=== PATIENT | female | born 1990 | race Caucasian/White ===

== ENCOUNTER 2016-08-11 17:29 | Emergency (ER) | payer MEDICAID ==
--- NOTE | 2016-08-11 19:00 | EDM.PDOC ---
<Conner Llanos Antonio - Last Filed: 08/11/16 23:04> ED HPI GENERAL MEDICAL PROBLEM - General Chief Complaint: Behavioral/Psych Stated Complaint: EVAL Time Seen by Provider: 08/11/16 18:46 Source of Information: Reports: Patient History Limitations: Reports: No Limitations - History of Present Illness INITIAL COMMENTS - FREE TEXT/NARRATIVE: With suicidal thoughts x last several months. Financial and marital stressors. Is seeing a counselor but admits that she lies to her on input forms. Has five children. Lives with her husbands grandparents. His grandma has alcohol issues. Pt feels like her anxiety and depression are getting worse. Started cutting herself for the last several weeks. Does smoke pot and has been drinking daily. "I can't handle life." Has had suicidal thoughts. Denies current plan. Has been on current meds for 6 months. Was off for 1-2 years when living in [place]. Denies immediate post blues but about 2 months after of her last child began feeling depressed mood. Admits to having OCD but has been leaving the cleaning to wait. Has been throwing up daily due to stress. Is willing to show me her cutting to right upper thigh but is ashamed of it. Took a Xanax from a friend the other day. Is willing to speak to a crisis counselor. 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: Neurological History: Reports: Migraines Psychiatric History: Reports: Anxiety, Depression, Other (See Below) Other Psychiatric History: cutting Social & Family History - Recreational Drug Use Recreational Drug Use: Yes Recreational Drug Type: Reports: Marijuana/Hashish Recreational Drug Use Frequency: Weekly ED ROS GENERAL - Review of Systems Review Of Systems: See Below Constitutional: Reports: Fatigue HEENT: Reports: No Symptoms Respiratory: Reports: No Symptoms Cardiovascular: Reports: No Symptoms Skin: Reports: Other (cutting to right thigh) Psychiatric: Reports: Anxiety, Depression, Mood Lability, Suicidal Ideation ED EXAM, BEHAVIORAL HEALTH - Physical Exam Exam: See Below Exam Limited By: No Limitations General Appearance: Anxious, Mild Distress, Other (well kept appearance, good historian, verbally appropriate) Psychiatric: Alert, Oriented, Depressed Mood, Suicidal Thoughts, Other (cutting behaviors) Skin Exam: Other (scabbed cuts to right upper thigh covering entire area. No sign of infection.) COURSE, BEHAVIORAL HEALTH COMP - Course Vital Signs: Last Vital Signs Temp 98.3 F 08/11/16 23:23 Pulse 99 08/11/16 23:23 Resp 16 08/11/16 23:23 BP 159/104 H 08/11/16 23:23 Pulse Ox 98 08/11/16 23:23 Orders, Labs, Meds: Laboratory Tests 08/11/16 08/11/16 08/11/16 Range/Units 19:16 19:16 19:17 WBC 7.9 (4.5-11.0) K/uL RBC 4.64 (3.30-5.50) M/uL Hgb 13.6 (12.0-15.0) g/dL Hct 40.6 (36.0-48.0) % MCV 88 (80-98) fL MCH 29 (27-31) pg MCHC 34 (32-36) % Plt Count 321 (150-400) K/uL Neut % (Auto) 67 H (36-66) % Lymph % (Auto) 23 L (24-44) % [place] % (Auto) 7 H (2-6) % Eos % (Auto) 2 (2-4) % Baso % (Auto) 1 (0-1) % Sodium (140-148) mmol/L Potassium (3.6-5.2) mmol/L Chloride (100-108) mmol/L Carbon Dioxide (21-32) mmol/L Anion Gap (5.0-14.0) mmol/L BUN (7-18) mg/dL Creatinine (0.6-1.0) mg/dL Est Cr Clr Drug Dosing mL/min Estimated GFR (MDRD) (>60) Glucose (74-106) mg/dL Calcium (8.5-10.1) mg/dL Total Bilirubin (0.2-1.0) mg/dL AST (15-37) U/L ALT (12-78) U/L Alkaline Phosphatase (46-116) U/L Total Protein (6.4-8.2) g/dL Albumin (3.4-5.0) g/dL Globulin (2.3-3.5) g/dL Albumin/Globulin Ratio (1.2-2.2) TSH, Ultra Sensitive (0.358-3.740) uIU/mL Urine Color Urine Appearance Urine pH (4.5-8.0) Ur Specific [place] (1.008-1.030) Urine Protein (NEGATIVE) mg/dL Urine Glucose (UA) (NEGATIVE) mg/dL Urine Ketones (NEGATIVE) mg/dL Urine Occult Blood (NEGATIVE) Urine Nitrite (NEGATIVE) Urine Bilirubin (NEGATIVE) Urine Urobilinogen (NORMAL) mg/dL Ur Leukocyte Esterase (NEGATIVE) Urine HCG, Qual Urine Opiates Screen (NEGATIVE) Ur Oxycodone Screen (NEGATIVE) Urine Methadone Screen (NEGATIVE) Ur Propoxyphene Screen (NEGATIVE) Acetaminophen 0.0 L (10.0-30.0) ug/mL Ur Barbiturates Screen (NEGATIVE) Ur Tricyclics Screen (NEGATIVE) Ur Phencyclidine Scrn (NEGATIVE) Ur Amphetamine Screen (NEGATIVE) U Methamphetamines Scrn (NEGATIVE) Urine MDMA Screen (NEGATIVE) U Benzodiazepines Scrn (NEGATIVE) U Cocaine Metab Screen (NEGATIVE) U Marijuana (THC) Screen (NEGATIVE) Ethyl Alcohol < 3 mg/dL 08/11/16 08/11/16 08/11/16 Range/Units 19:17 19:30 20:00 WBC (4.5-11.0) K/uL RBC (3.30-5.50) M/uL Hgb (12.0-15.0) g/dL Hct (36.0-48.0) % MCV (80-98) fL MCH (27-31) pg MCHC (32-36) % Plt Count (150-400) K/uL Neut % (Auto) (36-66) % Lymph % (Auto) (24-44) % [place] % (Auto) (2-6) % Eos % (Auto) (2-4) % Baso % (Auto) (0-1) % Sodium 142 (140-148) mmol/L Potassium 4.0 (3.6-5.2) mmol/L Chloride 105 (100-108) mmol/L Carbon Dioxide 24 (21-32) mmol/L Anion Gap 12.9 (5.0-14.0) mmol/L BUN 14 (7-18) mg/dL Creatinine 0.7 (0.6-1.0) mg/dL Est Cr Clr Drug Dosing 105.17 mL/min Estimated GFR (MDRD) > 60 (>60) Glucose 98 (74-106) mg/dL Calcium 8.9 (8.5-10.1) mg/dL Total Bilirubin 0.3 (0.2-1.0) mg/dL AST 33 (15-37) U/L ALT 57 (12-78) U/L Alkaline Phosphatase 90 (46-116) U/L Total Protein 8.1 (6.4-8.2) g/dL Albumin 4.3 (3.4-5.0) g/dL Globulin 3.8 H (2.3-3.5) g/dL Albumin/Globulin Ratio 1.1 L (1.2-2.2) TSH, Ultra Sensitive 1.907 (0.358-3.740) uIU/mL Urine Color Urine Appearance Urine pH (4.5-8.0) Ur Specific [place] (1.008-1.030) Urine Protein (NEGATIVE) mg/dL Urine Glucose (UA) (NEGATIVE) mg/dL Urine Ketones (NEGATIVE) mg/dL Urine Occult Blood (NEGATIVE) Urine Nitrite (NEGATIVE) Urine Bilirubin (NEGATIVE) Urine Urobilinogen (NORMAL) mg/dL Ur Leukocyte Esterase (NEGATIVE) Urine HCG, Qual Negative Urine Opiates Screen Negative (NEGATIVE) Ur Oxycodone Screen Negative (NEGATIVE) Urine Methadone Screen Negative (NEGATIVE) Ur Propoxyphene Screen Negative (NEGATIVE) Acetaminophen (10.0-30.0) ug/mL Ur Barbiturates Screen Negative (NEGATIVE) Ur Tricyclics Screen Negative (NEGATIVE) Ur Phencyclidine Scrn Negative (NEGATIVE) Ur Amphetamine Screen Negative (NEGATIVE) U Methamphetamines Scrn Negative (NEGATIVE) Urine MDMA Screen Negative (NEGATIVE) U Benzodiazepines Scrn Positive H (NEGATIVE) U Cocaine Metab Screen Negative (NEGATIVE) U Marijuana (THC) Screen Positive H (NEGATIVE) Ethyl Alcohol mg/dL 08/11/16 Range/Units 20:00 WBC (4.5-11.0) K/uL RBC (3.30-5.50) M/uL Hgb (12.0-15.0) g/dL Hct (36.0-48.0) % MCV (80-98) fL MCH (27-31) pg MCHC (32-36) % Plt Count (150-400) K/uL Neut % (Auto) (36-66) % Lymph % (Auto) (24-44) % [place] % (Auto) (2-6) % Eos % (Auto) (2-4) % Baso % (Auto) (0-1) % Sodium (140-148) mmol/L Potassium (3.6-5.2) mmol/L Chloride (100-108) mmol/L Carbon Dioxide (21-32) mmol/L Anion Gap (5.0-14.0) mmol/L BUN (7-18) mg/dL Creatinine (0.6-1.0) mg/dL Est Cr Clr Drug Dosing mL/min Estimated GFR (MDRD) (>60) Glucose (74-106) mg/dL Calcium (8.5-10.1) mg/dL Total Bilirubin (0.2-1.0) mg/dL AST (15-37) U/L ALT (12-78) U/L Alkaline Phosphatase (46-116) U/L Total Protein (6.4-8.2) g/dL Albumin (3.4-5.0) g/dL Globulin (2.3-3.5) g/dL Albumin/Globulin Ratio (1.2-2.2) TSH, Ultra Sensitive (0.358-3.740) uIU/mL Urine Color Yellow Urine Appearance Clear Urine pH 5.0 (4.5-8.0) Ur Specific [place] 1.025 (1.008-1.030) Urine Protein Negative (NEGATIVE) mg/dL Urine Glucose (UA) Normal (NEGATIVE) mg/dL Urine Ketones Negative (NEGATIVE) mg/dL Urine Occult Blood Negative (NEGATIVE) Urine Nitrite Negative (NEGATIVE) Urine Bilirubin Negative (NEGATIVE) Urine Urobilinogen Normal (NORMAL) mg/dL Ur Leukocyte Esterase Negative (NEGATIVE) Urine HCG, Qual Urine Opiates Screen (NEGATIVE) Ur Oxycodone Screen (NEGATIVE) Urine Methadone Screen (NEGATIVE) Ur Propoxyphene Screen (NEGATIVE) Acetaminophen (10.0-30.0) ug/mL Ur Barbiturates Screen (NEGATIVE) Ur Tricyclics Screen (NEGATIVE) Ur Phencyclidine Scrn (NEGATIVE) Ur Amphetamine Screen (NEGATIVE) U Methamphetamines Scrn (NEGATIVE) Urine MDMA Screen (NEGATIVE) U Benzodiazepines Scrn (NEGATIVE) U Cocaine Metab Screen (NEGATIVE) U Marijuana (THC) Screen (NEGATIVE) Ethyl Alcohol mg/dL Departure - Departure Disposition: DC/Tfer to Psych Hosp/Unit 65 Clinical Impression: Suicidal ideation, Self-harm Depression Qualifiers: Depression Type: major depressive disorder Major depression recurrence: recurrent Active/Remission status: currently active Major depression episode severity: severe Psychotic features: without psychotic features Qualified Code(s ): F33.2 - Major depressive disorder, recurrent severe without psychotic features - Discharge Information Referrals: Carolyn Oliveros NP [Primary Care Provider] - Forms: ED Department Discharge Additional Instructions: Pt open to speaking to data analytics specialist. Specialist does arrive to interview patient and spouse. Recommends placement at this time for psychiatric care. Pt agreeable to plan. Care turned over to Dr. Ibarra at 2300 as we await placement. - Problem List & Annotations (1) Suicidal ideation SNOMED Code(s): 9201970, 272710678 Code(s): R45.851 - SUICIDAL IDEATIONS Status: Acute Priority: Medium Current Visit: Yes (2) Depression SNOMED Code(s): 94299053 Code(s): F32.9 - MAJOR DEPRESSIVE DISORDER, SINGLE EPISODE, UNSPECIFIED Status: Acute Priority: Medium Current Visit: Yes Qualifiers: Depression Type: major depressive disorder Major depression recurrence: recurrent Active/Remission status: currently active Major depression episode severity: severe Psychotic features: without psychotic features Qualified Code(s): F33.2 - Major depressive disorder, recurrent severe without psychotic features (3) Self-harm SNOMED Code(s): 287485195 Code(s): AXO5806 - Status: Acute Priority: Medium Current Visit: Yes <SimeonrBib - Last Filed: 08/11/16 23:29> Departure - Departure Time of Disposition: 23:29 - Assessment/Plan Plan: patient was accepted to [facility] in [facility] will be transported via private car with her
[2016-08-11 23:26] VITALS: BP 159/104
== END 2016-08-11 23:45 ==
LOC: JP.ED 17:29
DX: F32.2 Major depressive disorder, single episode, severe without psychotic features (principal); S71.111A Laceration without foreign body, right thigh, initial encounter; R45.851 Suicidal ideations; Z79.899 Other long term (current) drug therapy; Z87.440 Personal history of urinary (tract) infections; X78.9XXA Intentional self-harm by unspecified sharp object, initial encounter
CPT/HCPCS: 36415; 80053; 80305; 81003; 81025; 84443; 85025; 99285; G0480

== ENCOUNTER 2017-07-13 14:30 | Emergency (ER) | payer MEDICAID ==
[2017-07-13] MEDS ORDERED: Sodium Chloride 0.9% 10 ML Syringe FLUSH PRN (17:09)
[2017-07-13] MEDS ORDERED: HYDROmorphone 0.5 MG/0.5 ML Syringe IVPUSH ONE ×2 (17:09→20:38)
[2017-07-13] MEDS ORDERED: Ondansetron 4 MG/2 ML SDV IVPUSH ONE (17:09)
[2017-07-13] MEDS ORDERED: Sodium Chloride 0.9% 100 ML IV SCH (18:15)
[2017-07-13] MEDS ORDERED: Iopamidol 612 MG/ML 100 ML Bottle IV SCH (18:15)
[2017-07-13] MEDS ORDERED: Sodium Chloride 0.9% 1,000 ML IV ONE ×2 (18:54→20:38)
[2017-07-13 19:55] VITALS: BP 120/67
[2017-07-13] MEDS ORDERED: Sodium Chloride 0.9% 1,000 ML IV SCH (20:15)
--- NOTE | 2017-07-13 20:52 | EDM.PDOC ---
ED HPI GENERAL MEDICAL PROBLEM - General Chief Complaint: General Stated Complaint: SWOLLEN LYMPH NODES Time Seen by Provider: 07/13/17 15:55 Source of Information: Reports: Patient History Limitations: Reports: No Limitations - History of Present Illness INITIAL COMMENTS - FREE TEXT/NARRATIVE: Salma presents today with complaints of worsening pain to left neck, difficulty swallowing, eating with pain radiating to left jaw and ear. She also complains of fever, chills, nausea off and on. She denies vomiting, change in bowel or bladder habits. Salma was seen by Dr. Brandt Broussard on 07/08/17 for left sided throat pain with radiation to left ear for 2 weeks. Fever of 101.3. She was prescribed cephalexin 1 gram PO BID for 10 days. Patient states she finished all prescribed antibiotics. 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 Denies: Weakness HEENT: Reports: Ear Pain, Throat Pain, Throat Swelling, Other (Left sided throat pain with radiation to left jaw and left ear. ). Denies: Dental Pain, Ear Discharge, Sinus Problem Respiratory: Denies: Shortness of Breath, Wheezing, Cough, Sputum Cardiovascular: Reports: No Symptoms Endocrine: Reports: No Symptoms GI/Abdominal: Reports: Difficulty Swallowing, Nausea. Denies: Abdominal Pain, Anorexia, Diarrhea, Vomiting : Reports: No Symptoms Musculoskeletal: Reports: No Symptoms Skin: Reports: Other (Edema to left neck ). Denies: Rash, Erythema, Wound Neurological: Denies: Confusion, Dizziness, Headache, Numbness, Tingling, Weakness Psychiatric: Reports: No Symptoms Hematologic/Lymphatic: Reports: No Symptoms Immunologic: Reports: No Symptoms ED EXAM, GENERAL - Physical Exam Exam: See Below Free Text/Narrative:: Salma is an alert and oriented 26 year old female presenting with complaints of left sided neck pain, and edema. Recent treatment with cephalexin for positive strep screen on 07/08/17. She denies trauma, recent injury to her neck, jaw or ear. General Appearance: Alert, WD/WN, Moderate Distress Eye Exam: Bilateral Eye: EOMI, Normal Inspection, PERRL Ears: Normal External Exam, Normal Canal, Hearing Grossly Normal, Normal TMs Ear Exam: Bilateral Ear: Auricle Normal, Canal Normal, TM normal Nose: Normal Inspection, Normal Mucosa, No Blood Throat/Mouth: Normal Inspection, Normal Lips, Normal Teeth, Normal Gums, Normal Oropharynx, No Airway Compromise, Other (hoarse voice, pain with palpation to left inner cheek and lower gum. No deviation of uvula noted. ) Head: Atraumatic, Normocephalic. No: Facial Swelling, Facial Tenderness, Sinus Tenderness Neck: Limited Range of Motion, Lymphadenopathy (L), Other (Pain with palpation to left kneck at midline to posterior neck with edema. No erythema noted. ) Respiratory/Chest: No Respiratory Distress, Lungs Clear, Normal Breath Sounds, No Accessory Muscle Use, Chest Non-Tender Cardiovascular: Normal Peripheral Pulses, Regular Rate, Rhythm, No Edema, No Murmur, No Rub Peripheral Pulses: 2+: Radial (L), Radial (R) GI/Abdominal: Normal Bowel Sounds, Soft, Non-Tender, No Organomegaly, No Distention, No Abnormal Bruit, No Mass Back Exam: Normal Inspection, Full Range of Motion. No: CVA Tenderness (R), CVA Tenderness (L) Extremities: Normal Inspection, Normal Range of Motion, Non-Tender, No Pedal Edema, Normal Capillary Refill Neurological: Alert, Oriented, CN II-XII Intact, Normal Cognition, Normal Gait, No Motor/Sensory Deficits Psychiatric: Normal Affect, Normal Mood Skin Exam: Warm, Dry, Intact, Normal Color, No Rash. No: Cyanosis, Ecchymosis, Erythema, Increased Warmth, Rash Lymphatic: Other (Asymetrical cervical adenopathy, trismus noted) Course - Vital Signs Last Recorded V/S: Last Vital Signs Temp 36.7 C 07/13/17 19:55 Pulse 90 07/13/17 19:55 Resp 17 07/13/17 19:55 BP 120/67 07/13/17 19:55 Pulse Ox 100 07/13/17 19:55 - Orders/Labs/Meds Orders: Active Orders 24 hr Category Date Time Status Soft Tissue Neck w Cont [CT] Stat Exams 07/13/17 17:09 Taken Iopamidol [Isovue-300 (61%)] Med 07/13/17 18:15 Active 100 ml IV . DIRECTED Sodium Chloride 0.9% [Normal Saline] 1,000 ml Med 07/13/17 20:38 Active IV .BOLUS Sodium Chloride 0.9% [Normal Saline] 100 ml Med 07/13/17 18:15 Active IV ASDIRECTED Sodium Chloride 0.9% [Saline Flush] Med 07/13/17 17:09 Active 10 ml FLUSH ASDIRECTED PRN Saline Lock Insert [OM.PC] Routine Oth 07/13/17 17:09 Ordered Medication Orders Sodium Chloride (Normal Saline) 100 mls @ 3 mls/sec IV ASDIRECTED CARLY Last Admin: 07/13/17 18:34 Dose: 3 mls/sec Sodium Chloride (Normal Saline) 1,000 mls @ 1,000 mls/hr IV .BOLUS ONE Stop: 07/13/17 21:37 Last Admin: 07/13/17 21:16 Dose: 1,000 mls/hr Iopamidol (Isovue-300 (61%)) 100 ml IV . DIRECTED CARLY Last Admin: 07/13/17 18:34 Dose: 100 ml Sodium Chloride (Saline Flush) 10 ml FLUSH ASDIRECTED PRN PRN Reason: Keep Vein Open Last Admin: 07/13/17 18:49 Dose: 10 ml Labs: Laboratory Tests 07/13/17 07/13/17 Range/Units 17:35 17:35 WBC 14.2 H (4.5-11.0) K/uL RBC 4.67 (3.30-5.50) M/uL Hgb 14.0 (12.0-15.0) g/dL Hct 40.6 (36.0-48.0) % MCV 87 (80-98) fL MCH 30 (27-31) pg MCHC 35 (32-36) % Plt Count 410 H (150-400) K/uL Neut % (Auto) 82 H (36-66) % Lymph % (Auto) 12 L (24-44) % [place] % (Auto) 5 (2-6) % Eos % (Auto) 1 L (2-4) % Baso % (Auto) 0 (0-1) % Sodium 139 L (140-148) mmol/L Potassium 3.3 L (3.6-5.2) mmol/L Chloride 102 (100-108) mmol/L Carbon Dioxide 26 (21-32) mmol/L Anion Gap 14.3 H (5.0-14.0) mmol/L BUN 10 (7-18) mg/dL Creatinine 0.7 (0.6-1.0) mg/dL Est Cr Clr Drug Dosing 105.17 mL/min Estimated GFR (MDRD) > 60 (>60) Glucose 74 (74-106) mg/dL Calcium 9.1 (8.5-10.1) mg/dL Total Bilirubin 0.4 (0.2-1.0) mg/dL AST 24 (15-37) U/L ALT 51 (12-78) U/L Alkaline Phosphatase 112 (46-116) U/L Total Protein 9.4 H (6.4-8.2) g/dL Albumin 4.4 (3.4-5.0) g/dL Globulin 5.0 H (2.3-3.5) g/dL Albumin/Globulin Ratio 0.9 L (1.2-2.2) Patient lab work reviewed, WBC 14.2, neut 82, K 3.3. Dr. Watson notified, I will contact ENT. [facility] ENT supervisor international reservations, Dr. Gaspar contacted. Patient will be discharged, provided clindamycin 450mg PO every 8 hours for 10 days with ENT follow up. Patient in agreement. Meds: Medications Generic Name Dose Route Start Last Admin Trade Name Freq PRN Reason Stop Dose Admin Sodium Chloride 100 mls @ 3 mls/sec 07/13/17 18:15 07/13/17 18:34 Normal Saline IV 3 mls/sec ASDIRECTED CARLY Administration Sodium Chloride 1,000 mls @ 1,000 mls/hr 07/13/17 20:38 07/13/17 21:16 Normal Saline IV 07/13/17 21:37 1,000 mls/hr .BOLUS ONE Administration Iopamidol 100 ml 07/13/17 18:15 07/13/17 18:34 Isovue-300 (61%) IV 100 ml . DIRECTED CARLY Administration Sodium Chloride 10 ml 07/13/17 17:09 07/13/17 18:49 Saline Flush FLUSH 10 ml ASDIRECTED PRN Administration Keep Vein Open Discontinued Medications Generic Name Dose Route Start Last Admin Trade Name Freq PRN Reason Stop Dose Admin Hydrocodone Bitart/Acetaminophen 1 tab 07/13/17 21:09 07/13/17 21:15 Perry 325-5 Mg PO 07/13/17 21:10 1 tab ONETIME ONE Administration Hydromorphone HCl 0.5 mg 07/13/17 17:09 07/13/17 18:47 Dilaudid IVPUSH 07/13/17 17:10 0.5 mg ONETIME ONE Administration Hydromorphone HCl 0.5 mg 07/13/17 20:38 07/13/17 21:18 Dilaudid IVPUSH 07/13/17 20:39 Not Given ONETIME ONE Sodium Chloride 1,000 mls @ 1,000 mls/hr 07/13/17 18:54 07/13/17 19:03 Normal Saline IV 07/13/17 19:53 1,000 mls/hr .BOLUS ONE Administration Sodium Chloride 1,000 mls @ 500 mls/hr 07/13/17 20:15 Normal Saline IV ASDIRECTED CARLY Ondansetron HCl 4 mg 07/13/17 17:09 07/13/17 18:46 Zofran IVPUSH 07/13/17 17:10 4 mg ONETIME ONE Administration - Radiology Interpretation CT Results Date: 07/13/17 (CT neck soft tissue with IV contrast: Severe enlargement of the left palatine tinsils present within irregular central region of decreased enhancement measuring 18 x 8 mm, consitent with tonsillar abscess. Severe bilateral jugular adenopathy noted with lymph nodes measuring up to 2.6cm with the left greater than the right. ) - Re-Assessments/Exams Free Text/Narrative Re-Assessment/Exam: 07/13/17 20:[address] report, ENT recommendations. She is in agreement with plan. Departure - Departure Time of Disposition: 21:12 Disposition: Home, Self-Care 01 Condition: Fair Clinical Impression: Tonsillar abscess, Lymph nodes enlarged - Discharge Information Referrals: Saadia Bedoya PA [Primary Care Provider] - Forms: ED Department Discharge, ED Return to Work/School Form Additional Instructions: You have been treated and evaluated for left tonsillar abscess. Patient will be discharged, provided clindamycin 450mg PO every 8 hours for 10 days with ENT follow up per [facility] ENT supervisor international reservations, Dr. Gaspar. Patient in agreement. Follow up with ENT in two weeks. Follow up with primary provider for recheck in one week. Take acetaminophen 1000mg and ibuprofen 600 to 800mg by mouth at the same time three times a day for pain. Do not take for more then 5 days, Push oral fluids to stay hydrated. Eat soft foods such as bananas, apple sauce, puddings and soups. Return to the emergency room for worsening, issues or concerns. - My Orders Last 24 Hours: My Active Orders 07/13/17 17:09 Soft Tissue Neck w Cont [CT] Stat Sodium Chloride 0.9% [Saline Flush] 10 ml FLUSH ASDIRECTED PRN Saline Lock Insert [OM.PC] Routine 07/13/17 18:15 Iopamidol [Isovue-300 (61%)] 100 ml IV . DIRECTED Sodium Chloride 0.9% [Normal Saline] 100 ml IV ASDIRECTED 07/13/17 20:38 Sodium Chloride 0.9% [Normal Saline] 1,000 ml IV .BOLUS - Assessment/Plan Last 24 Hours: My Active Orders 07/13/17 17:09 Soft Tissue Neck w Cont [CT] Stat Sodium Chloride 0.9% [Saline Flush] 10 ml FLUSH ASDIRECTED PRN Saline Lock Insert [OM.PC] Routine 07/13/17 18:15 Iopamidol [Isovue-300 (61%)] 100 ml IV . DIRECTED Sodium Chloride 0.9% [Normal Saline] 100 ml IV ASDIRECTED 07/13/17 20:38 Sodium Chloride 0.9% [Normal Saline] 1,000 ml IV .BOLUS Assessment:: Left tonsillar abscess Plan: Patient treated and evaluated for left tonsillar abscess. Patient will be discharged, provided clindamycin 450mg PO every 8 hours for 10 days with ENT follow up per [facility] ENT supervisor international reservations, Dr. Gaspar. Patient in agreement. Follow up with ENT in two weeks. Follow up with primary provider for recheck in one week. Take acetaminophen 1000mg and ibuprofen 600 to 800mg by mouth at the same time three times a day for pain. Do not take for more then 5 days, Push oral fluids to stay hydrated. Eat soft foods such as bananas, apple sauce, puddings and soups. Return to the emergency room for worsening, issues or concerns.
[2017-07-13] MEDS ORDERED: Acetaminophen/HYDROcodone 325-5 MG Tab PO ONE (21:09)
== END 2017-07-13 21:30 | disposition home or self-care (01) ==
LOC: JP.ED 14:30
DX: J36 Peritonsillar abscess (principal); F17.210 Nicotine dependence, cigarettes, uncomplicated; F41.9 Anxiety disorder, unspecified; F32.9 Major depressive disorder, single episode, unspecified; Z79.899 Other long term (current) drug therapy
CPT/HCPCS: 36415; 70491; 80053; 85025; 96361; 96374; 96375; 99284; A9270; J1170; J2405; J7030; J7040; J7050; Q9967

== ENCOUNTER 2017-08-12 09:37 | Day surgery (SDC) | payer MEDICAID ==
[~2017-08-12 09:37] MED LIST: Dexamethasone 4 MG/ML SDV ONE; Ondansetron 4 MG/2 ML SDV ONE; Oxymetazoline 0.05% Nasal Spray 15 ML Bottle ONE; Propofol 200 MG/20 ML SDV ONE; Rocuronium 50 MG/5 ML Vial ONE; Succinylcholine 200 MG/10 ML MDV ONE; fentaNYL 100 MCG/2 ML SDV ONE
[2017-08-12] MEDS ORDERED: Lactated Ringers 1,000 ML IV SCH (10:37)
[2017-08-12] MEDS ORDERED: fentaNYL 250 MCG/5 ML SDV ONE (10:50)
[2017-08-12] MEDS ORDERED: Acetaminophen/HYDROcodone 108-2.5 MG/5 ML Soln 15 ML UD Cup PO PRN (13:58)
[2017-08-12 14:42] VITALS: BP 126/76
== END 2017-08-12 14:30 | disposition home or self-care (01) ==
LOC: JP.SDS 09:37
PROVIDERS: ATTEND Otolaryngology
DX: J03.91 Acute recurrent tonsillitis, unspecified (principal); F17.210 Nicotine dependence, cigarettes, uncomplicated; E66.9 Obesity, unspecified; Z68.37 Body mass index [BMI] 37.0-37.9, adult; K21.9 Gastro-esophageal reflux disease without esophagitis; F33.42 Major depressive disorder, recurrent, in full remission; F41.9 Anxiety disorder, unspecified; Z79.899 Other long term (current) drug therapy
CPT/HCPCS: 42821; 88304; A9270; J0330; J1100; J2405; J2704; J3010; J7120

== ENCOUNTER 2020-02-05 06:33 | Inpatient (IN) | payer MEDICAID ==
[2020-02-05] MEDS ORDERED: Celecoxib 200 MG Cap PO ONE (06:45)
[2020-02-05] MEDS ORDERED: Scopolamine 1.5 MG Transdermal Patch TOP SCH (06:45)
[2020-02-05] MEDS ORDERED: Acetaminophen 500 MG Tab PO ONE (06:45)
[2020-02-05] MEDS ORDERED: fentaNYL 250 MCG/5 ML SDV ONE ×3 (07:01→09:46)
[2020-02-05] MEDS ORDERED: Dexamethasone 4 MG/ML SDV ONE (07:02)
[2020-02-05] MEDS ORDERED: Rocuronium 50 MG/5 ML Vial ONE (07:02)
[2020-02-05] MEDS ORDERED: Succinylcholine 200 MG/10 ML MDV ONE (07:02)
[2020-02-05] MEDS ORDERED: Ondansetron 4 MG/2 ML SDV ONE (07:02)
[2020-02-05] MEDS ORDERED: Propofol 200 MG/20 ML SDV ONE (07:02)
[2020-02-05] MEDS ORDERED: Glycopyrrolate 0.2 MG/ML 5 ML MDV ONE (07:02)
[2020-02-05] MEDS ORDERED: Neostigmine Methylsulfate 1 MG/ML 5 ML Syringe ONE (07:02)
[2020-02-05] MEDS ORDERED: Lactated Ringers 1,000 ML ONE (07:05)
[2020-02-05] MEDS ORDERED: Dextrose 5%-Lactated Ringers 1,000 ML IV SCH (08:00)
[2020-02-05] MEDS ORDERED: cefOXitin 2 GM Vial ONE (08:07)
[2020-02-05] MEDS ORDERED: Ketamine 50 MG in Sodium Chloride 0.9% 49.5 ML IV SCH (08:15)
[2020-02-05] MEDS ORDERED: Ketamine 500 MG/5 ML MDV IV SCH (08:15)
[2020-02-05] MEDS ORDERED: Magnesium Sulfate 3 GM in Sodium Chloride 0.9% 100 ML IV SCH (08:15)
[2020-02-05] MEDS ORDERED: cefOXitin 2 GM in Sodium Chloride 0.9% 50 ML IV ONE (08:30)
[2020-02-05] MEDS ORDERED: Labetalol 20 MG/4 ML Syringe ONE (09:46)
[2020-02-05] MEDS ORDERED: hydrOXYzine HCL 100 MG/2 ML SDV IM ONE (10:30)
[2020-02-05] MEDS ORDERED: Ondansetron 4 MG/2 ML SDV IVPUSH ONE (10:30)
[2020-02-05] MEDS ORDERED: Cyclobenzaprine 10 MG Tab PO PRN (11:33)
[2020-02-05] MEDS ORDERED: Metoclopramide 10 MG/2 ML SDV IVPUSH PRN (12:00)
[2020-02-05] MEDS ORDERED: Labetalol 20 MG/4 ML Syringe IVPUSH PRN (12:00)
[2020-02-05] MEDS ORDERED: HYDROmorphone 1 MG/ML Syringe IV PRN (12:00)
[2020-02-05] MEDS ORDERED: Ondansetron 4 MG/2 ML SDV IVPUSH PRN (12:00)
[2020-02-05] MEDS ORDERED: HYDROmorphone 0.5 MG/0.5 ML Syringe IVPUSH PRN (12:00)
[2020-02-05] MEDS ORDERED: Acetaminophen 500 MG Tab PO PRN (12:00)
[2020-02-05] MEDS ORDERED: diphenhydrAMINE 50 MG/ML SDV IVPUSH PRN (12:00)
[2020-02-05] MEDS ORDERED: hydrOXYzine HCL 100 MG/2 ML SDV IM PRN (12:00)
[2020-02-05] MEDS ORDERED: Calcium Gluconate 10% 1 GM/10 ML SDV IVPUSH PRN (12:00)
[2020-02-05] MEDS: cefOXitin 2 GM in Sodium Chloride 0.9% 50 ML IV SCH ×2 (14:09→20:33)
[2020-02-05] MEDS: Acetaminophen 500 MG Tab PO SCH ×2 (14:17→22:34)
[2020-02-05] MEDS: MVI, Adult with Vitamin K 10 ML, Thiamine 200 MG, Zinc/Copper/Manganese/Selenium 1 ML i... IV SCH ×8 (14:17→16:01)
[2020-02-05] MEDS: Pantoprazole 40 MG Vial IVPUSH SCH (14:18)
[2020-02-05] MEDS: Heparin Sodium 5,000 Units/ML Vial SUBCUT SCH (16:38)
[2020-02-05] MEDS: oxyCODONE 5 MG Tab PO PRN ×2 (16:38→22:33)
[2020-02-05] MEDS: Amphetamine/Dextroamphetamine Salts 10 MG Tab PO SCH (18:24)
[2020-02-05] MEDS: Dextrose 5%-Lactated Ringers 1,000 ML IV SCH (21:33)
[2020-02-06] MEDS: cefOXitin 2 GM in Sodium Chloride 0.9% 50 ML IV SCH ×2 (01:59→08:04)
[2020-02-06] MEDS: Heparin Sodium 5,000 Units/ML Vial SUBCUT SCH ×2 (04:13→15:01)
[2020-02-06] MEDS ORDERED: Iopamidol 612 MG/ML 50 ML SDV PO ONE (04:24)
[2020-02-06] MEDS: Dextrose 5%-Lactated Ringers 1,000 ML IV SCH (04:52)
[2020-02-06] MEDS: Acetaminophen 500 MG Tab PO SCH ×3 (06:06→21:32)
[2020-02-06] MEDS: Celecoxib 200 MG Cap PO SCH ×2 (08:01→21:32)
[2020-02-06] MEDS: Amphetamine/Dextroamphetamine Salts 10 MG Cap.ER PO SCH (08:04)
[2020-02-06] MEDS: SCOPOLAMINE PATCH CHECK TOP SCH (08:09)
[2020-02-06] MEDS ORDERED: Dextrose 5%-Lactated Ringers 1,000 ML IV SCH (08:30)
[2020-02-06] MEDS ORDERED: buPROPion 150 MG Tab.SR PO SCH (09:00)
[2020-02-06] MEDS: oxyCODONE 5 MG Tab PO PRN (11:20)
[2020-02-06] MEDS: Pantoprazole 40 MG Vial IVPUSH SCH (14:12)
[2020-02-06] MEDS: Amphetamine/Dextroamphetamine Salts 10 MG Tab PO SCH (14:55)
[2020-02-06] MEDS: MVI, Adult with Vitamin K 10 ML, Thiamine 200 MG, Zinc/Copper/Manganese/Selenium 1 ML i... IV SCH ×8 (14:55→15:01)
[2020-02-06] MEDS ORDERED: Pantoprazole 40 MG Delayed-Release Granules 1 Packet PO SCH (16:30)
[2020-02-07] MEDS: Heparin Sodium 5,000 Units/ML Vial SUBCUT SCH (05:04)
[2020-02-07] MEDS: Acetaminophen 500 MG Tab PO SCH (05:04)
[2020-02-07] MEDS ORDERED: Magnesium Hydroxide 400 MG/5 ML Susp 30 ML Cup PO PRN (08:30)
[2020-02-07 08:48] VITALS: BP 127/75; PULSE 80
[2020-02-07] MEDS ORDERED: Cyanocobalamin (Vitamin B12) 1,000 MCG/ML SDV IM ONE (09:00)
[2020-02-07] MEDS: SCOPOLAMINE PATCH CHECK TOP SCH (09:01)
[2020-02-07] MEDS: oxyCODONE 5 MG Tab PO PRN (09:01)
[2020-02-07] MEDS: Celecoxib 200 MG Cap PO SCH (09:01)
[2020-02-07] MEDS: Amphetamine/Dextroamphetamine Salts 10 MG Cap.ER PO SCH (09:01)
--- NOTE | 2020-02-07 14:08 | PN ---
DATE OF SERVICE: 02/06/2020 The patient has been afebrile with stable vital signs. No major problems have been noted overnight. The upper GI x-ray looks good. We will go to a step-2 diet today and she may be ready for discharge home tomorrow. Sherif Aguirre MD /[id number]
--- NOTE | 2020-02-08 08:02 | DISCH ---
FINAL DIAGNOSES: 1. Morbid obesity. 2. Hepatomegaly. 3. Paraesophageal diaphragmatic hernia associated with mediastinal lipoma. 4. History of depression. 5. History of attention deficit hyperactivity disorder. 6. History of gastroesophageal reflux disease. OPERATIVE PROCEDURES: Done on 02/04, diagnostic laparoscopy with; 1. Laparoscopic Pushpa-en-Y gastric bypass along with gastroenterostomy. 2. Rojelio-Cut needle liver biopsy. 3. Repair of paraesophageal diaphragmatic hernia. 4. Excision of mediastinal lipoma. SUMMARY: This is a 29-year-old female presenting with longstanding morbid obesity and increasingly significant comorbidities. After preoperative evaluation and discussion, she wished to proceed with gastric bypass undertaken on the day of admission. Postoperatively, she has had no significant problems. She is tolerating Celebrex and Tylenol for pain, not requiring narcotics and will be discharged home on a step-2 diet until her first appointment, which will be with Sola Isaac at [facility] on 02/15/2020. /[id number]
--- NOTE | 2020-02-08 10:27 | CR ---
UGI Limited HISTORY: Postbariatric surgery FINDINGS: Patient swallowed water-soluble contrast. Upright views of the abdomen show no evidence of extravasation or obstruction. There is a surgical drain in the left upper quadrant. There is some mild small bowel distention likely related to postoperative ileus IMPRESSION: Status post bariatric surgery No extravasation or obstruction seen
--- NOTE | 2020-02-14 09:07 | OR ---
DATE OF PROCEDURE: 02/05/2020 SURGEON: Sherif Aguirre MD PREOPERATIVE DIAGNOSIS: Morbid obesity. POSTOPERATIVE DIAGNOSES: 1. Morbid obesity. 2. Marked hepatomegaly. 3. Paraesophageal diaphragmatic hernia. 4. Mediastinal lipoma. OPERATIVE PROCEDURES: Diagnostic laparoscopy with: 1. Laparoscopic Pushpa-en-Y gastric bypass with long limb gastroenterostomy (15369). 2. Rojelio-Cut needle liver biopsy (79095). 3. Repair of paraesophageal diaphragmatic hernia (23143). 4. Excision of mediastinal lipoma (70906). ANESTHESIA: General. HEAD OF DRAMA: Sola Isaac PA-C INDICATIONS FOR PROCEDURE: This is a 29-year-old female, presenting with longstanding morbid obesity and increasingly significant comorbidities. After preoperative evaluation and discussion, she wished to proceed with a gastric bypass procedure. Potential risks of the procedure including bleeding, infection, leaks from various GI tract closures, problems with bowel obstruction over time, as well as possibility of cardiopulmonary, septic, or hemorrhagic complications leading to were discussed, and the patient wishes to proceed. DETAILS OF PROCEDURE: The patient was taken to the operating room, and after general endotracheal anesthesia was induced, the abdomen was prepped and draped. 15 cm inferior and 5 cm left of the xiphoid process, a transverse incision was made and the peritoneal cavity entered under direct vision with an Optiview trocar, inflated 15 mmHg pressure of CO2. Laparoscope was then reinserted. No underlying trocar insertion site injuries were seen. Following this, bilateral transversus abdominis plane blocks were placed, and 5 additional trocars were placed across the upper and mid abdomen. The patient was noted to have marked hepatomegaly and liver biopsies were obtained from left lobe of the liver. Minimal bleeding from the biopsy sites was controlled with electrocautery. The omentum was then divided in the midline up to the level of the transverse colon. This allowed identification of the small bowel to ligament of Treitz. Small bowel was then traced out 125 cm distal to that point, where it was divided transversely with a ANTONINA stapler. Small bowel was then traced out additional 175 mm, where a apaw-ey-oupl enteroenterostomy was accomplished with an internal firing of the Endo-ANTONINA 60 mm stapler, common opening was then closed transversely with the same stapler and angles anastomosed and mesenteric defect approximated with some 0 Ethibond sutures along with fibrin sealant. Divided end of the Pushpa limb was then from the mesentery for a few centimeters, which allowed antecolic positioning of the Pushpa limb up to the level of the gastroesophageal junction without tension. The liver was then retracted anteriorly. The patient was noted to have a moderate-sized paraesophageal diaphragmatic hernia containing some perigastric fat, gastric fundus, and a tongue of omentum. The hernia was reduced and the peritoneum overlying was reflected downward. During the course of dissection, the patient was noted to have a mediastinal lipoma present which was excised to facilitate more adequate crural repair. Crural repair was then accomplished anteriorly with 0 Ethibond sutures reinforced with PTFE pledgets. Gastrointestinal balloon catheter was then inflated 15 mL and pulled up snugly against the EG junction. Gastric wall over the apex balloon was then marked with electrocautery and balloon catheter deflated and withdrawn. The lesser omental tissue adjacent to the gastric cardia was incised allowing dissection behind the stomach at that level. Pouch formation was initiated with transverse firing of the ANTONINA stapler at the level of the cauterized janett at the gastric cardia and completed with additional firings up to and through the angle of His. Upon completion of the pouch, both staple lines were noted to be intact. The anvil of a 25 mm EEA stapler was attached to a Mcculloch sump type tube. The latter was brought down through the mouth, taken out through small opening in the gastric pouch, allowing the anvil likewise to be pulled down to within the gastric pouch. Divided end of the Pushpa limb was then opened and main body of EEA stapler passed several centimeters into the lumen of small bowel, brought up the anvil, united with it thus creating the gastrojejunostomy. Upon removal of the stapler, double donuts of mucosa were noted within it. Small bowel was closed off with a vascular staple line. Gastrojejunostomy was reinforced with 3-0 Vicryl seromuscular stitch along with fibrin sealant. Leak test was accomplished with injection of 120 mL of air in the gastric pouch while it submerged with cefoxitin-containing saline solution. No leaks were identified. A single Deven-Peterson drain was taken out through the left lateral trocar site and positioned adjacent to the gastrojejunostomy, from there up into the splenic fossa. The trocars were then removed and peritoneal cavity was deflated. Incisions were closed with some 4-0 Vicryl skin stitch and drain affixed with some 4-0 Vicryl stitch as well. The patient was taken to the recovery room in satisfactory condition. Physician construction administrative assistant, Sola Isaac, played an essential role in assisting in this case helping to position the patient, retract structures as needed, as well as suturing and cutting sutures when indicated. Her presence improved patient safety and decreased operative time. Sherif Aguirre MD /[id number]
== END 2020-02-07 10:45 | disposition home or self-care (01) | DRG 621 ==
LOC: JP.SDS 06:33 → JP.SDSSCHI 06:33 → EDSTATUS 08:15 → JP.MS 10:10
PROVIDERS: ADMIT Surgery; ATTEND Surgery
PROC: 0D164ZA Bypass Stomach to Jejunum, Percutaneous Endoscopic Approach (ICD-10-PCS; principal; 2020-02-05)
PROC: 0FB24ZX Excision of Left Lobe Liver, Percutaneous Endoscopic Approach, Diagnostic (ICD-10-PCS; 2020-02-05)
PROC: 0BQT4ZZ Repair Diaphragm, Percutaneous Endoscopic Approach (ICD-10-PCS; 2020-02-05)
PROC: 0JB63ZZ Excision of Chest Subcutaneous Tissue and Fascia, Percutaneous Approach (ICD-10-PCS; 2020-02-05)
DX: E66.01 Morbid (severe) obesity due to excess calories (principal); R16.0 Hepatomegaly, not elsewhere classified; K44.9 Diaphragmatic hernia without obstruction or gangrene; D17.4 Benign lipomatous neoplasm of intrathoracic organs; F32.9 Major depressive disorder, single episode, unspecified; F90.9 Attention-deficit hyperactivity disorder, unspecified type; K21.9 Gastro-esophageal reflux disease without esophagitis; F41.9 Anxiety disorder, unspecified; F17.210 Nicotine dependence, cigarettes, uncomplicated; F42.9 Obsessive-compulsive disorder, unspecified; Z87.440 Personal history of urinary (tract) infections; Z79.899 Other long term (current) drug therapy; Z68.39 Body mass index [BMI] 39.0-39.9, adult
CPT/HCPCS: 36415; 74240; 74240-26; 81025; 82962; 86850; 86900; 86901; 88304; 88307; 88313; 93005; 93010; A9270-GY; C9113; J0171; J0330; J0694; J1100; J1170; J1644; J2405; J2704; J2710; J2795; J3010; J3410; J3411; J3420; J3475; J3490; J7030; J7050; J7120; J7121; Q9967

== ENCOUNTER 2021-10-13 11:50 | Emergency (ER) | payer MEDICAID ==
[2021-10-13] MEDS ORDERED: Sodium Chloride 0.9% 10 ML Syringe FLUSH PRN (12:46)
[2021-10-13] MEDS ORDERED: Ondansetron 4 MG/2 ML SDV IVPUSH ONE (12:46)
[2021-10-13] MEDS ORDERED: Sodium Chloride 0.9% 1,000 ML IV SCH ×2 (13:00→14:15)
[2021-10-13 13:29] LABS: ESTIMATED GFR 119 mL/min (>60)
[2021-10-13 13:43] VITALS: BP 110/71; PULSE 65
== END 2021-10-13 15:39 | disposition home or self-care (01) ==
LOC: JP.ED 11:50
DX: R11.2 Nausea with vomiting, unspecified (principal); B34.9 Viral infection, unspecified; E66.9 Obesity, unspecified; Z68.23 Body mass index [BMI] 23.0-23.9, adult; Z79.899 Other long term (current) drug therapy; Z20.822 Contact with and (suspected) exposure to COVID-19
CPT/HCPCS: 36415; 80053; 81001; 85025; 87635; 96361; 96374; 99284; J2405; J3490; J7030; U0002

== ENCOUNTER 2024-02-19 14:41 | Inpatient (IN) | payer MEDICAID ==
[2024-02-19 15:30] LABS: BASOPHILS PERCENT AUTO 0.2 % (0.1-1.3); EOSINOPHILS ABSOLUTE AUTO 0.06 K/uL (0.00-0.40); EOSINOPHILS PERCENT AUTO 0.5 % (0.0-5.4); HEMATOCRIT 38.9 % (34.3-46.0); HEMOGLOBIN 13.6 g/dL (11.2-15.5); IMMATURE GRAN ABSOLUTE AUTO 0.04 K/uL (0.00-0.23); IMMATURE GRAN PERCENT AUTO 0.3 % (0.0-0.7); LYMPHOCYTES ABSOLUTE AUTO 1.19 K/uL (0.8-3.3); LYMPHOCYTES PERCENT AUTO 9.9 % (11.4-47.7); MEAN CORPUSCULAR HEMOGLOBIN 31.1 pg (31.6-35.5); MEAN CORPUSCULAR VOLUME 88.8 fL (81.4-99.0); MONOCYTES PERCENT AUTO 7.5 % (3.3-12.6); NEUTROPHILS ABSOLUTE AUTO 9.84 K/uL (1.0-7.6); NEUTROPHILS PERCENT AUTO 81.6 % (40.0-78.1); PLATELET COUNT,PLT 322 K/uL (130-375); RED BLOOD CELL COUNT 4.38 M/uL (3.77-5.24); WHITE BLOOD CELL COUNT,WBC 12.1 K/uL (3.2-11.0)
[2024-02-19 15:33] LABS: BASOPHILS ABSOLUTE AUTO 0.02 K/uL (0.00-0.10)
[2024-02-19] MEDS: Lactated Ringers 1,000 ML IV ONE ×2 (15:33→17:07)
[2024-02-19] MEDS: Ondansetron 4 MG/2 ML SDV IVPUSH ONE ×2 (15:33→17:07)
[2024-02-19] MEDS: HYDROmorphone 0.5 MG/0.5 ML Syringe IVPUSH ONE ×2 (15:34→17:07)
[2024-02-19] MEDS: Sodium Chloride 0.9% 10 ML Syringe FLUSH PRN (15:34)
[2024-02-19 15:52] LABS: A/G RATIO 1.2 (1.2-2.2); ALANINE AMINOTRANSFERASE,ALT 17 U/L (12-78); ALBUMIN 4.2 g/dL (3.4-5.0); ALKALINE PHOSPHATASE 70 U/L (46-116); ANION GAP 6.9 mmol/L (5.0-14.0); ASPARTATE AMNIOTRANSFERASE,AST 5 U/L (15-37); BILIRUBIN TOTAL 0.5 mg/dL (0.2-1.0); BLOOD UREA NITROGEN,BUN 15 mg/dL (7-18); CARBON DIOXIDE,CO2 31 mmol/L (21-32); CHLORIDE,CL 102 mmol/L (100-108); CREATININE 0.9 mg/dL (0.6-1.0); EST CRCL DRUG DOSING (CG) 75.16 mL/min; ESTIMATED GFR 87 mL/min (>60); GLUCOSE RANDOM 102 mg/dL (74-106); POTASSIUM,K 4.4 mmol/L (3.6-5.2); PROTEIN TOTAL,TP 7.8 g/dL (6.4-8.2); SODIUM,NA 140 mmol/L (140-148)
[2024-02-19] MEDS ORDERED: Naloxone 0.4 MG/ML SDV IVPUSH PRN (17:04)
[2024-02-19] MEDS: Pantoprazole 40 MG Vial IVPUSH SCH (17:27)
[2024-02-19] MEDS: Lidocaine 4% Top Soln 50 ML Bottle MUCMEM ONE (17:27)
[2024-02-19] MEDS: Ketorolac 15 MG/ML SDV IVPUSH SCH (17:31)
[2024-02-19] MEDS: Ondansetron 4 MG/2 ML SDV IV PRN (19:17)
[2024-02-19] MEDS: HYDROmorphone 0.5 MG/0.5 ML Syringe IVPUSH PRN (19:17)
[2024-02-19] MEDS: Lactated Ringers 1,000 ML IV SCH (20:21)
[2024-02-20 05:11] LABS: BASOPHILS ABSOLUTE AUTO 0.03 K/uL (0.00-0.10); BASOPHILS PERCENT AUTO 0.3 % (0.1-1.3); EOSINOPHILS ABSOLUTE AUTO 0.13 K/uL (0.00-0.40); EOSINOPHILS PERCENT AUTO 1.2 % (0.0-5.4); IMMATURE GRAN ABSOLUTE AUTO 0.05 K/uL (0.00-0.23); IMMATURE GRAN PERCENT AUTO 0.4 % (0.0-0.7); LYMPHOCYTES ABSOLUTE AUTO 1.04 K/uL (0.8-3.3); LYMPHOCYTES PERCENT AUTO 9.2 % (11.4-47.7); MEAN CORPUSCULAR HEMOGLOBIN 30.5 pg (31.6-35.5); MEAN CORPUSCULAR HGB CONC 34.3 g/dL (31.6-35.5); MEAN CORPUSCULAR VOLUME 89.1 fL (81.4-99.0); MONOCYTES ABSOLUTE AUTO 0.76 K/uL (0.20-0.90); MONOCYTES PERCENT AUTO 6.7 % (3.3-12.6); NEUTROPHILS ABSOLUTE AUTO 9.28 K/uL (1.0-7.6); NEUTROPHILS PERCENT AUTO 82.2 % (40.0-78.1); PLATELET COUNT,PLT 266 K/uL (130-375); RED BLOOD CELL COUNT 3.93 M/uL (3.77-5.24); WHITE BLOOD CELL COUNT,WBC 11.3 K/uL (3.2-11.0)
[2024-02-20 05:32] LABS: ANION GAP 7.8 mmol/L (5.0-14.0); CALCIUM 8.3 mg/dL (8.5-10.1); CREATININE 0.7 mg/dL (0.6-1.0); EST CRCL DRUG DOSING (CG) 94.56 mL/min; POTASSIUM,K 3.7 mmol/L (3.6-5.2)
[2024-02-20] MEDS: HYDROmorphone 0.5 MG/0.5 ML Syringe IVPUSH ONE (09:25)
[2024-02-20] MEDS ORDERED: Rocuronium 50 MG/5 ML Vial ONE (09:34)
[2024-02-20] MEDS ORDERED: Succinylcholine 200 MG/10 ML MDV ONE (09:34)
[2024-02-20] MEDS ORDERED: Neostigmine Methylsulfate 10 MG/10 ML MDV ONE (09:34)
[2024-02-20] MEDS ORDERED: Glycopyrrolate 0.2 MG/ML 5 ML MDV ONE (09:34)
[2024-02-20] MEDS ORDERED: Ondansetron 4 MG/2 ML SDV ONE (09:34)
[2024-02-20] MEDS ORDERED: Dexamethasone 4 MG/ML SDV ONE (09:34)
[2024-02-20] MEDS ORDERED: Propofol 200 MG/20 ML SDV ONE (09:34)
[2024-02-20] MEDS ORDERED: fentaNYL 250 MCG/5 ML SDV ONE ×2 (09:35→12:40)
[2024-02-20] MEDS: Promethazine 12.5 MG in Sodium Chloride 0.9% 50 ML IV ONE (11:34)
[2024-02-20] MEDS ORDERED: Lactated Ringers 1,000 ML ONE (12:48)
[2024-02-20] MEDS: ceFAZolin 2 GM in Premix Bag 1 BAG IV ONE (13:22)
[2024-02-20] MEDS: Bupivacaine 0.25%/EPINEPHrine 1:200,000 30 ML SDV ONE (13:31)
[2024-02-20] MEDS: Pantoprazole 40 MG Vial IVPUSH SCH (17:28)
[2024-02-21] MEDS: Acetaminophen 500 MG Tab PO SCH (09:13)
[2024-02-21] MEDS: oxyCODONE 5 MG Tab PO PRN (09:13)
[2024-02-21] MEDS ORDERED: Cyclobenzaprine 10 MG Tab PO SCH (16:15)
[2024-02-21] MEDS: Cyclobenzaprine 10 MG Tab PO SCH (17:08)
[2024-02-22 06:02] VITALS: BP 108/61; PULSE 69
== END 2024-02-22 09:28 | disposition home or self-care (01) | DRG 355 ==
LOC: JP.ED 14:41 → JP.ICU 17:04 → OBSVTOIN 02-20 10:00
PROVIDERS: ADMIT Surgery; ATTEND Surgery
PROC: 0D9670Z Drainage of Stomach with Drainage Device, Via Natural or Artificial Opening (ICD-10-PCS; 2024-02-20)
PROC: 0WQF4ZZ Repair Abdominal Wall, Percutaneous Endoscopic Approach (ICD-10-PCS; principal; 2024-02-20 12:00)
DX: K46.0 Unspecified abdominal hernia with obstruction, without gangrene (principal); K21.9 Gastro-esophageal reflux disease without esophagitis; G43.909 Migraine, unspecified, not intractable, without status migrainosus; F41.9 Anxiety disorder, unspecified; F32.A Depression, unspecified; E66.9 Obesity, unspecified; D72.829 Elevated white blood cell count, unspecified; Z79.899 Other long term (current) drug therapy; Z98.84 Bariatric surgery status; Z68.23 Body mass index [BMI] 23.0-23.9, adult; Z90.89 Acquired absence of other organs; Z87.891 Personal history of nicotine dependence
CPT/HCPCS: 00790-QZ; 36415; 43752; 74018; 74018-26; 80048; 80053; 83605; 83615; 84703; 85025; 96361; 96374; 96375; 96376; 99285; 99285-25; A9270-GY; G0378; J0330; J0690; J1100; J1171; J1596; J1885; J2405; J2470; J2550; J2704; J2710; J3010; J3490; J7120

== ENCOUNTER 2025-02-04 15:43 | Emergency (ER) | payer MEDICAID ==
[2025-02-04 16:38] LABS: BASOPHILS ABSOLUTE AUTO 0.03 K/uL (0.00-0.10); BASOPHILS PERCENT AUTO 0.4 % (0.1-1.3); EOSINOPHILS ABSOLUTE AUTO 0.10 K/uL (0.00-0.40); EOSINOPHILS PERCENT AUTO 1.5 % (0.0-5.4); IMMATURE GRAN PERCENT AUTO 0.1 % (0.0-0.7); LYMPHOCYTES ABSOLUTE AUTO 1.35 K/uL (0.8-3.3); LYMPHOCYTES PERCENT AUTO 20.2 % (11.4-47.7); MONOCYTES ABSOLUTE AUTO 0.46 K/uL (0.20-0.90); MONOCYTES PERCENT AUTO 6.9 % (3.3-12.6); NEUTROPHILS ABSOLUTE AUTO 4.72 K/uL (1.0-7.6); NEUTROPHILS PERCENT AUTO 70.9 % (40.0-78.1); PLATELET COUNT,PLT 320 K/uL (130-375); RED BLOOD CELL COUNT 3.95 M/uL (3.77-5.24); WHITE BLOOD CELL COUNT,WBC 6.7 K/uL (3.2-11.0)
[2025-02-04 16:45] LABS: APPEARANCE,URINE CLEAR (CLEAR); GLUCOSE,URINE NEGATIVE (NEGATIVE); OCCULT BLOOD,URINE NEGATIVE (NEGATIVE)
[2025-02-04 16:48] LABS: IMMATURE GRAN ABSOLUTE AUTO 0.01 K/uL (0.00-0.23)
[2025-02-04 17:04] LABS: A/G RATIO 1.3 (1.2-2.2); ALANINE AMINOTRANSFERASE,ALT 22 U/L (12-78); ASPARTATE AMNIOTRANSFERASE,AST 19 U/L (15-37); BILIRUBIN TOTAL 0.3 mg/dL (0.2-1.0); BLOOD UREA NITROGEN,BUN 20 mg/dL (7-18); CARBON DIOXIDE,CO2 27 mmol/L (21-32); CHLORIDE,CL 104 mmol/L (100-108); CREATININE 0.7 mg/dL (0.6-1.0); ESTIMATED GFR 116 mL/min (>60); GLUCOSE RANDOM 88 mg/dL (74-106); POTASSIUM,K 4.0 mmol/L (3.6-5.2); PROTEIN TOTAL,TP 7.7 g/dL (6.4-8.2); SODIUM,NA 140 mmol/L (140-148)
[2025-02-04] MEDS: Iopamidol 612 MG/ML 100 ML Bottle IV PRN (17:29)
[2025-02-04] MEDS: Sodium Chloride 0.9% 10 ML Syringe FLUSH PRN (17:29)
[2025-02-04 18:57] VITALS: BP 108/63; PULSE 60
== END 2025-02-04 19:30 | disposition home or self-care (01) ==
LOC: JP.ED 15:43
DX: R10.12 Left upper quadrant pain (principal); J45.909 Unspecified asthma, uncomplicated; K21.9 Gastro-esophageal reflux disease without esophagitis; E66.9 Obesity, unspecified; Z86.16 Personal history of COVID-19; Z79.899 Other long term (current) drug therapy; Z68.22 Body mass index [BMI] 22.0-22.9, adult
CPT/HCPCS: 36415; 74177; 80053; 81003; 81025; 85025; 96361; 96374; 99284; J1171; J7030; Q9967; 99283